=== PATIENT | male | born 2000 | race Caucasian/White ===

== ENCOUNTER 2022-10-29 12:32 | Emergency (ER) | payer BC, OTHER ==
[2022-10-29] MEDS ORDERED: HYDROcodone/Acetaminophen 5/325 mg Tablet ONE (12:47)
== END 2022-10-29 13:06 | disposition home or self-care (01) ==
LOC: BURERS 12:32
DX: S01.01XA Laceration without foreign body of scalp, initial encounter (principal); F17.210 Nicotine dependence, cigarettes, uncomplicated; W22.8XXA Striking against or struck by other objects, initial encounter
CPT/HCPCS: 12013

== ENCOUNTER 2022-11-03 12:24 | Emergency (ER) | payer BC, OTHER | END 2022-11-03 12:39 | disposition home or self-care (01) | LOC: BURERS 12:24 | DX: S01.01XD Laceration without foreign body of scalp, subsequent encounter (principal); F17.200 Nicotine dependence, unspecified, uncomplicated ==